=== PATIENT | female | born 1960 | race Caucasian/White ===

== ENCOUNTER → 2016-07-19 | Outpatient (CLI) | payer OTHER ==
[~2016-07-19] MED LIST: ACID REDUCER 1150 MG PO; CALCIUM 600 +1 EAC1 PO; CENTRUM SILVER1 EAC4 PO; NORCO 5-325 TA1 EACH PO; VITAMIN D-32000 UNIT PO; VITAMINC500 PO
== END ==
LOC: RAD 04:49
DX: N63 Unspecified lump in breast (principal); R92.8 Other abnormal and inconclusive findings on diagnostic imaging of breast

== ENCOUNTER → 2017-07-21 | Outpatient (CLI) | payer OTHER | LOC: RAD 01:18 | DX: R92.8 Other abnormal and inconclusive findings on diagnostic imaging of breast (principal) ==

== ENCOUNTER → 2018-07-24 | Outpatient (CLI) | payer OTHER | LOC: RAD 03:16 | DX: Z12.31 Encounter for screening mammogram for malignant neoplasm of breast (principal) ==

== ENCOUNTER 2019-09-01 09:52 | Emergency (ER) | payer OTHER ==
[~2019-09-01] VITALS: Ht 154.9 cm; Wt 68.0 kg
--- NOTE | ~2019-09-01 | EMS ---
[address] [address] EMS Patient Care Report Name: KAMILA LUCIANO Room #: DEP MIKA Pate#: [id number] Admission: 09/01/19 Attend Phys: Discharge: 09/01/19 Date of : 64 Report #: [id number] THIS REPORT FOR: //name// Report Transmitted: 09/02/2019 03:42 EMS Care Summary [place], [place]/[facility] Incident [id number] @ 09/01/2019 09:00 Incident Location [address] [place], [place] [id number] Patient KAMILA LUCIANO Female, 59 Years 1960 Patient Address [address] [place] [address] Patient History Other,Breast Cancer, Patient Allergies No known allergies, Patient Medications Other, Chief Complaint CHEST PAIN/DISCOMFORT Disposition Transported No Lights/[place] Dispatch Reason Sick Person Transported To [facility] Narrative PT STETS THAT PT STARTED FEELING LIGHT HEADED AND SAT DOWN. PT DENIES LOC. PT STETS THAT PT WAS RECENTLY DIAGONSISED WITH PLUESIS AND WAS TREATED AT A HOSPITAL FOR THAT. PT ADMITS TO CHEST PAIN. PT DENIES SOA. PT DENIES NAUSEA. PT STATES THAT PT'S CHEST PAIN IS HEAVY AND IN THE CENTER OF PT'S CHEST. PT STATES [address] [address] EMS Patient Care Report Name: KAMILA LUCIANO Room #: DEP [facility]#: [id number] Admission: 09/01/19 Attend Phys: Discharge: 09/01/19 Date of : 64 Report #: [id number] THAT THIS ALL STARTED WHILE SHE WAS WORKING. PT HAS NO OTHER COMPLAINTS. PT WAS FOUND SITTING IN FULL CHI POSITION. PT SPOKE IN FULL AND COMPLETE SENTENCES. PT IS ABLE TO STAND AND PIVOT TO GET ONTO EMS COT. PT HAS NO OTHER OBVIOUS ABNORMALITIES. Initial Vitals @09:30P: 85,BP: 153/91,CO: 4,SpO2: 96, @09:21P: 84,R: 18,BP: 157/98,Pain: 6/10,GCS: 15,CO: 1,SpO2: 94,Revised Trauma: 12, @09:27P: 76,R: 18,BP: 153/91,Pain: 4/10,GCS: 15,Glucose: 121,CO: 4,SpO2: 96,Revised Trauma: 12, Assessments @09:16MENTAL:Combative,Confused,Hallucinations,Other,Unresponsive,Person Oriented,Place Oriented,Time Oriented,Event Oriented,SKIN:HEENT:Head/Face: No Abnormalities,LUNG SOUNDS:General: No Abnormalities,ABDOMEN:General: No Abnormalities,PELVIS//GI:EXTREMITIES:PULSE:NEURO:No Abnormalities, Impression Chest Pain / Discomfort Procedures @09:243-Lead ECGResponse: UnchangedSucceeded@09:25Saline Lock 0cc (18 ga) Site: Antecubital-LeftResponse: UnchangedSucceeded@09:27Aspirin - 324 Milligrams (mg) - OralResponse: Unchanged@09:2712-Lead ECG@09:2712-Lead ECG@09:23ALS AssessmentResponse: UnchangedSucceeded@09:28Oxygen FlowRate: 2 Device: Nasal Cannula (NC) Response: UnchangedSucceeded Timeline 09:00,Call Received 09:00,Dispatch Notified 09:00,Dispatched 09:01,En Route 09:12,On Scene 09:16,At Patient 09:21,BP: 157/98 M,PULSE: 84,RR: 18 R,SPO2: 94 Ox,ETCO2: ,BG: ,PAIN: 6,GCS: 15, 09:23,ALS Assessment,Response: UnchangedSucceeded, 09:24,3-Lead ECG,Response: UnchangedSucceeded, 09:25,Saline Lock 0cc 18 ga Site: Antecubital-Left,Response: UnchangedSucceeded, 09:27,12-Lead ECG, 09:27,12-Lead ECG, 09:27,BP: 153/91 M,PULSE: 76,RR: 18 R,SPO2: 96 Ox,ETCO2: ,B,PAIN: 4,GCS: 15, 09:27,Aspirin - 324 Milligrams (mg) - Oral,Response: Unchanged 09:28,Oxygen FlowRate: 2 Device: Nasal Cannula (NC) Response: [facility] [address] [place] [address] EMS Patient Care Report Name: KAMILA LUCIANO [facility] Room #: SHAHRAM Pate#: [id number] Admission: 09/01/19 Attend Phys: Discharge: 09/01/19 Date of : 64 Report #: [id number] UnchangedSucceeded, 09:30,BP: 153/91 M,PULSE: 85,RR: R,SPO2: 96 Ox,ETCO2: ,BG: ,PAIN: ,GCS: , 09:32,Depart Scene 09:47,At Destination 10:06,Call Closed Disclaimer [email or web address] Copyright 2020 [employer] This EMS Care Summary contains data elements from the applicable legal record (which may be displayed differently). It is designed to provide pertinent information for the following purposes: continuity of care, clinical quality, and state data reporting. The complete legal record is available to ED staff and administrators of the receiving hospital in [facility]'s Patient Tracker. All data is provided "as is."
[2019-09-01 10:17] LABS: HEMOGLOBIN 9.5 gm/dL (12.0-15.0); MCH 31.8 pg (26.0-34.0); MCHC 33.9 g/dL (28.0-37.0); MCV 93.7 fL (80.0-100.0); RBC 2.98 mil/uL (4.20-5.00); RDW 15.9 % (10.5-14.5); WBC 5.3 thou/uL (4.0-11.0)
[2019-09-01 10:26] LABS: ANION GAP 9 mmol/L (7-16); BUN 24 mg/dL (7-18); CALCIUM 9.1 mg/dL (8.5-10.1); CHLORIDE 105 mmol/L (98-107); CO2 26 mmol/L (21-32); CREATININE 0.9 mg/dL (0.6-1.0); GLUCOSE 111 mg/dL (74-106); POTASSIUM 4.2 mmol/L (3.5-5.1); SODIUM 140 mmol/L (136-145)
[2019-09-01 10:35] LABS: TROPONIN-I <0.06 ng/mL (<0.06)
[2019-09-01] MEDS ORDERED: OMEPRAZOLE 20 M20 M1 PO (10:47)
[2019-09-01] MEDS ORDERED: NAPROSYN500 M1 PO (10:48)
[2019-09-01 11:33] LABS: ABSOLUTE NEUTROPHILS 2.7 thou/uL (1.4-8.2); ATYPICAL LYMPHS 1 %; METAMYELOCYTES 4 %; MYELOCYTES 3 %; NUCLEATED RBCS 2 /100WBC
[2019-09-01 11:43] LABS: ANISOCYTOSIS 1+; PLATELET COUNT 91 thou/uL (150-400); POLYCHROMASIA OCCASIONAL
[2019-09-01 12:51] VITALS: BP 124/80
--- NOTE | 2019-09-02 08:01 | EKG ---
[facility] [place] [address] ELECTROCARDIOGRAM REPORT Name: KAMILA LUCIANO Room #: DEP [facility].#: [id number] Admission: 09/01/19 Attend Phys: Discharge: 09/01/19 Date of : 64 Report #: [id number] THIS REPORT FOR: cc: FAM - Family physician unknown FAM - Family physician unknown Watson Agarwal MD [facility] THIS REPORT FOR: //name// [facility] ED Test Date: 2019-09-01 Test Time: 09:59:57 Pat Name: KAMILA LUCIANO Department: Room: Gender: F Executive [employer]: esheets : 1960 Requested By: Chadwick Walker Order Number: [id number] MD: Watson Agarwal Measurements Intervals [place] Rate: 77 P: 63 TN: 127 QRS: 32 QRSD: 99 T: 19 QT: 368 QTc: 417 Interpretive Statements Sinus rhythm Normal tracing Compared to ECG 11/30/2015 07:15:19 No significant changes Electronically Signed On 09-02-2019 7:59:14 CDT by Watson Agarwal [email or web address] <ELECTRONICALLY SIGNED> By: Watson Agarwal MD, [facility] 09/02/19 [phone] Watson Agarwal MD, [facility] /EPI
== END 2019-09-01 12:52 | disposition home or self-care (01) ==
LOC: ER 09:52
PROVIDERS: Emergency Medicine
DX: R07.89 Other chest pain (principal); R79.1 Abnormal coagulation profile; F17.210 Nicotine dependence, cigarettes, uncomplicated; Z88.8 Allergy status to other drugs, medicaments and biological substances; Z79.899 Other long term (current) drug therapy; Z98.51 Tubal ligation status